=== PATIENT | male | born 1975 | race Caucasian/White ===

== ENCOUNTER 2018-03-03 20:25 | Emergency (ER) | payer OTHER ==
[2018-03-03 20:39] VITALS: BP 152/55
[2018-03-03] MEDS ORDERED: PROPARACAINE 0.5% OPHTH DROPS 15 ML LEFTEYE STA (20:41)
[2018-03-03] MEDS ORDERED: POLYMYXIN B/TRIMETH OPHTH DROPS LEFTEYE STA (20:41)
--- NOTE | 2018-03-03 21:00 | ED Physician Documentation ---
PD HPI OPHTHO - Stated complaint Stated Complaint: EYE PX - Chief complaint Chief Complaint: Heent - History obtained from History obtained from: Patient - History of Present Illness Timing - onset: Yesterday Timing - details: Gradual onset, Still present Location: Left Quality / character: Itching, Burning, Throbbing Associated symptoms: Redness, Swelling Similar symptoms before: Has not had sx before - Additional information Additional information: Patient is a 42 year old male with no significant past medical history who is presenting to the emergency department for left eye pain. Patient states that it feels like there was a grain of sand in his eye, and this morning he had some discharge. patient denies any trauma and does not wear contact lenses. Review of Systems Ten Systems: 10 systems reviewed and negative Eyes: reports: Discharge, Irritation PD PAST MEDICAL HISTORY - Past Medical History Past Medical History: Yes Cardiovascular: None Respiratory: Sleep apnea Endocrine/Autoimmune: None GI: None : None HEENT: None Psych: Anxiety, Post traumatic stress disorder Musculoskeletal: Chronic back pain Derm: None - Past Surgical History Past Surgical History: Yes Ortho: ACL reconstruction - Present Medications Home Medications: Ambulatory Orders Medication Instructions Recorded Confirmed Ibuprofen [Motrin] 800 mg PO TID PRN 08/30/15 08/30/15 Bupropion HCl [Wellbutrin Xl] 300 mg PO DAILY 03/03/18 03/03/18 Polymyxin B Sulf/Trimethoprim 1 drop LEFTEYE Q3H 7 Days drops 03/03/18 [Polytrim Eye Drops] - Allergies Allergies/Adverse Reactions: Allergies Allergy/AdvReac Type Severity Reaction Status Date / Time bee sting Allergy Severe anaphalaxis Uncoded 03/03/18 20:32 - Social History Does the pt smoke?: No Smoking Status: Never smoker Does the pt drink ETOH?: No Does the pt have substance abuse?: No - Immunizations Immunizations are current?: Yes - POLST Patient has POLST: No PD ED PE NORMAL - Vitals Vital signs reviewed: Yes - General General: Alert and oriented X 3, No acute distress - HEENT HEENT: Atraumatic, PERRL - Cardiac Cardiac: RRR - Respiratory Respiratory: No respiratory distress - Abdomen Abdomen: Non distended - Derm Derm: Normal color - Extremities Extremities: No deformity - Neuro Neuro: Alert and oriented X 3 PD ED PE EXPANDED - Eyes Eyes: Visual acuity - see nn, Corneal abrasion (small corneal abrasion lateral to iris "3'oclock) Results - Vitals Vitals: Vital Signs - 24 hr 03/03/18 20:27 Temperature 36.9 C Heart Rate 69 Respiratory 14 Rate Blood Pressure 152/55 H O2 Saturation 99 Oxygen O2 Source Room air PD MEDICAL DECISION MAKING - ED course Complexity details: reviewed old records, reviewed results, re-evaluated patient , considered differential, d/w patient ED course: Patient was seen and examined at bedside. Patient's eye was viewed with fluorescein and there was a small corneal abrasion. patient was started on poltrim drops. patient required no further work up and was stable for discharge with outpatient follow up. - Sepsis Event Vital Signs: Vital Signs - 24 hr 03/03/18 20:27 Temperature 36.9 C Heart Rate 69 Respiratory 14 Rate Blood Pressure 152/55 H O2 Saturation 99 Oxygen O2 Source Room air Departure - Departure Disposition: 01 Home, Self Care Clinical Impression: Corneal abrasion, left Condition: Good Instructions: ED Eye Injury Corneal Abrasion Follow-Up: primary,care provider [Other] - As Needed Prescriptions: Polymyxin B Sulf/Trimethoprim [Polytrim Eye Drops] 1 drop LEFTEYE Q3H 7 Days drops Comments: Your symptoms today are being caused by a corneal abrasion. You had your first dose of antibiotics today and will need to be on them for the next week. you should take them 4 times a day. you can take motrin or tylenol as needed for pain. You may return to the emergency department at any time for new, worsening or uncontrollable symptoms. Discharge Date/Time: 03/03/18 21:10
== END 2018-03-03 21:10 | disposition home or self-care (01) ==
LOC: ED 20:25
DX: S05.02XA Injury of conjunctiva and corneal abrasion without foreign body, left eye, initial encounter (principal)
CPT/HCPCS: 99283; A9270; J3490

== ENCOUNTER 2018-04-06 17:48 | Emergency (ER) | payer OTHER ==
[2018-04-06] MEDS ORDERED: LORazepam 2 MG/ML VIAL ONE (18:09)
[2018-04-06] MEDS ORDERED: LORazepam 2 MG/ML VIAL IVP STA (18:09)
--- NOTE | 2018-04-06 18:12 | ED Physician Documentation ---
PD HPI CHEST PAIN - Stated complaint Stated Complaint: CP - Chief complaint Chief Complaint: Cardiac - History obtained from History obtained from: Patient, Family - History of Present Illness Timing - onset: Today (42-year-old gentleman with history of anxiety depression presents with chest pain radiating up to the head and down to the stomach and he feels like he is going to and is very shaky and he feels like he is going to have a seizure. This is been going on for about 2 hours.) Associated symptoms: Other (He describes perioral and finger numbness and hadCarpal spasms with blood pressure check) Review of Systems Ten Systems: 10 systems reviewed and negative Constitutional: denies: Fever, Chills Cardiac: reports: Chest pain / pressure, Palpitations Respiratory: reports: Dyspnea. denies: Cough GI: denies: Abdominal Pain, Nausea, Vomiting, Constipation, Diarrhea PD PAST MEDICAL HISTORY - Past Medical History Cardiovascular: None Respiratory: Sleep apnea Endocrine/Autoimmune: None GI: None : None HEENT: None Psych: Anxiety, Post traumatic stress disorder Musculoskeletal: Chronic back pain Derm: None - Past Surgical History Past Surgical History: Yes Ortho: ACL reconstruction - Present Medications Home Medications: Ambulatory Orders Medication Instructions Recorded Confirmed Ibuprofen [Motrin] 800 mg PO TID PRN 08/30/15 08/30/15 Bupropion HCl [Wellbutrin Xl] 300 mg PO DAILY 03/03/18 03/03/18 Polymyxin B Sulf/Trimethoprim 1 drop LEFTEYE Q3H 7 Days drops 03/03/18 [Polytrim Eye Drops] Alprazolam [Xanax] 0.5 mg PO Q6H PRN #15 tablet 04/06/18 - Allergies Allergies/Adverse Reactions: Allergies Allergy/AdvReac Type Severity Reaction Status Date / Time bee sting Allergy Severe anaphalaxis Uncoded 03/03/18 20:32 - Social History Does the pt smoke?: No Smoking Status: Never smoker Does the pt drink ETOH?: No Does the pt have substance abuse?: No - Immunizations Immunizations are current?: Yes - POLST Patient has POLST: No PD ED PE NORMAL - Vitals Vital signs reviewed: Yes - General General: Alert and oriented X 3, Other (He is clearly in the midst with of a panic attack with significant hyperventilation) - HEENT HEENT: PERRL, EOMI - Neck Neck: Supple, no meningeal sign, No bony TTP - Cardiac Cardiac: RRR, No murmur - Respiratory Respiratory: No respiratory distress, Clear bilaterally - Abdomen Abdomen: Non tender - Extremities Extremities: No edema, No calf tenderness / cord - Neuro Neuro: Alert and oriented X 3, Normal speech Results - Vitals Vitals: Vital Signs - 24 hr 04/06/18 04/06/18 17:51 18:51 Temperature 36.8 C Heart Rate 120 H 71 Respiratory 18 13 Rate Blood Pressure 144/89 H 128/58 L O2 Saturation 100 94 Oxygen O2 Source Room air - EKG (time done) 1753 Rate: Rate (enter#) (125) Rhythm: NSR [place]: Normal Intervals: Normal [place], Prolonged QT QRS: Normal Computer interpretation: Agree with computer - Labs Labs: Laboratory Tests 04/06/18 04/06/18 04/06/18 18:00 18:00 18:00 WBC 10.6 RBC 4.84 Hgb 14.9 Hct 43.3 MCV 89.4 MCH 30.8 MCHC 34.4 RDW 12.9 Plt Count 234 MPV 8.6 Neut # (Auto) 5.6 Lymph # (Auto) 4.2 H [place] # (Auto) 0.7 Eos # (Auto) 0.0 Baso # (Auto) 0.0 Absolute Nucleated RBC 0.01 Nucleated RBC % 0.1 VBG pH VBG pCO2 VBG pO2 VBG HCO3 VBG Total CO2 VBG O2 Saturation VBG Base Excess Sodium 135 Potassium 3.4 L Chloride 102 Carbon Dioxide 25 Anion Gap 8.0 BUN 18 Creatinine 1.5 H Estimated GFR (MDRD) 52 L Glucose 119 H Calcium 9.4 Total Bilirubin 1.1 H AST 37 ALT 30 Alkaline Phosphatase 41 L Troponin I < 0.04 Total Protein 8.1 Albumin 4.3 Globulin 3.8 Albumin/Globulin Ratio 1.1 Lipase 37 04/06/18 18:17 WBC RBC Hgb Hct MCV MCH MCHC RDW Plt Count MPV Neut # (Auto) Lymph # (Auto) [place] # (Auto) Eos # (Auto) Baso # (Auto) Absolute Nucleated RBC Nucleated RBC % VBG pH 7.584 H VBG pCO2 21.4 L VBG pO2 43.6 VBG HCO3 19.8 L VBG Total CO2 20.5 L VBG O2 Saturation 91.2 H VBG Base Excess 0.4 Sodium Potassium Chloride Carbon Dioxide Anion Gap BUN Creatinine Estimated GFR (MDRD) Glucose Calcium Total Bilirubin AST ALT Alkaline Phosphatase Troponin I Total Protein Albumin Globulin Albumin/Globulin Ratio Lipase PD MEDICAL DECISION MAKING - ED course ED course: 42-year-old gentleman presents with acute chest pain in seems to be a hyperventilation/panic episode on physical examination it which is corroborated by a significant hyperventilation and alkalosis on a venous blood gas. The remainder of his workup was without emergent findings. He felt much better and his exam normalized after milligram of Ativan IV. - Sepsis Event Vital Signs: Vital Signs - 24 hr 04/06/18 04/06/18 17:51 18:51 Temperature 36.8 C Heart Rate 120 H 71 Respiratory 18 13 Rate Blood Pressure 144/89 H 128/58 L O2 Saturation 100 94 Oxygen O2 Source Room air Departure - Departure Disposition: 01 Home, Self Care Clinical Impression: Hyperventilation, Panic attack Chest pain Qualifiers: Chest pain type: chest pain on breathing Qualified Code(s): R07.1 - Chest pain on breathing; R07.81 - Pleurodynia Condition: Stable Record reviewed to determine appropriate education?: Yes Instructions: ED Panic Attack Prescriptions: Alprazolam [Xanax] 0.5 mg PO Q6H PRN #15 tablet PRN Reason: Anxiety Comments: Discuss long-term treatments for anxiety with your physician at the [facility]. Return if worsening.
[2018-04-06 18:16] LABS: BASOPHILS % (AUTO) 0.4 %; EOSINOPHILS % (AUTO) 0.3 %; HGB - HEMOGLOBIN 14.9 g/dL (14.0-18.0); LYMPHOCYTES # (AUTO) 4.2 10^3/uL (1.5-3.5); LYMPHOCYTES % (AUTO) 39.5 %; MEAN CORPUSCULAR HEMOGLOBIN 30.8 pg (27.0-31.0); MEAN CORPUSCULAR HGB CONC 34.4 g/dL (32.0-36.0); MEAN CORPUSCULAR VOLUME 89.4 fL (80.0-94.0); MEAN PLATELET VOLUME 8.6 fL (7.4-11.4); MONOCYTES # (AUTO) 0.7 10^3/uL (0.0-1.0); MONOCYTES % (AUTO) 7.1 %; NEUTROPHILS # (AUTO) 5.6 10^3/uL (1.5-6.6); NEUTROPHILS % (AUTO) 52.7 %; PLT - PLATELET COUNT 234 10^3/uL (130-450); RED BLOOD COUNT 4.84 10^6/uL (4.70-6.10); RED CELL DISTRIBUTION WIDTH 12.9 % (12.0-15.0); WHITE BLOOD COUNT 10.6 x10^3/uL (4.8-10.8)
[2018-04-06 18:30] LABS: ALBUMIN 4.3 g/dL (3.2-5.5); ALBUMIN/GLOBULIN RATIO 1.1 (1.0-2.2); BILIRUBIN,TOTAL 1.1 mg/dL (0.2-1.0); CALCIUM 9.4 mg/dL (8.5-10.3); CREATININE 1.5 mg/dL (0.6-1.2); TOTAL PROTEIN 8.1 g/dL (6.7-8.2)
[2018-04-06 18:33] LABS: VBG PCO2 21.4 mmHg (41-51); VBG PH 7.584 (7.31-7.41); VBG PO2 43.6 mmHg (25-47); VBG TOTAL CO2 20.5 mmol/L (24-29)
[2018-04-06 18:34] LABS: VBG BASE EXCESS 0.4 mmol/L ([, -2 - +2])
--- NOTE | 2018-04-06 19:27 | XRAY Report ---
Procedure Date: 04/06/2018 Accession Number: [id number] / [id number] Procedure: XR - Chest 1 View X-Ray CPT Code: 23308 FULL RESULT: EXAM: CHEST RADIOGRAPHY EXAM DATE: 04/06/2018 07:01 PM. CLINICAL HISTORY: Chest pain. Shortness of air. COMPARISON: None. TECHNIQUE: 1 view. FINDINGS: Lungs/Pleura: No focal opacities evident. No pleural effusion. No pneumothorax. Mediastinum: Within exam limitations, the cardiomediastinal contour is normal. Other: None. IMPRESSION: Normal single view chest. RADIA
[2018-04-06 19:31] VITALS: BP 116/73
== END 2018-04-06 19:30 | disposition home or self-care (01) ==
LOC: ED 17:48
DX: F41.0 Panic disorder [episodic paroxysmal anxiety] (principal); I45.81 Long QT syndrome
CPT/HCPCS: 36415; 71045; 80053; 82803; 83690; 84484; 85025; 93005; 96374; 99283; 99284; J2060

== ENCOUNTER 2018-10-05 18:19 | Emergency (ER) | payer OTHER ==
[2018-10-05] MEDS ORDERED: ONDANSETRON ODT 4 MG TABLET TL STA (18:39)
--- NOTE | 2018-10-05 19:51 | ED Physician Documentation ---
PD HPI NVD - Stated complaint Stated Complaint: N/V/D - Chief complaint Chief Complaint: Abd Pain - Additonal information Additional information: 42-year-old male presents to the emergency department with his daughter for 1 day of nausea, vomiting or diarrhea. No focal area of abdominal pain. The patient does experience abdominal cramping with the episodes. No blood in the vomit or stools. They both may have eaten bad food. No other associated symptoms. No relieving factors. Review of Systems Constitutional: denies: Fever, Chills Eyes: denies: Discharge Ears: denies: Ear pain Nose: denies: Congestion Cardiac: denies: Chest pain / pressure Respiratory: denies: Dyspnea GI: reports: Abdominal Pain, Nausea, Vomiting, Diarrhea : denies: Dysuria Skin: denies: Rash Immunocompromised: denies: Chemotherapy PD PAST MEDICAL HISTORY - Past Medical History Cardiovascular: None Respiratory: Sleep apnea Endocrine/Autoimmune: None GI: None : None HEENT: None Psych: Anxiety, Post traumatic stress disorder Musculoskeletal: Chronic back pain Derm: None - Past Surgical History Past Surgical History: Yes Ortho: ACL reconstruction - Present Medications Home Medications: Ambulatory Orders Medication Instructions Recorded Confirmed Ibuprofen [Motrin] 800 mg PO TID PRN 08/30/15 08/30/15 Ondansetron Odt [Zofran] 4 mg TL Q6H PRN #30 tablet 10/05/18 - Allergies Allergies/Adverse Reactions: Allergies Allergy/AdvReac Type Severity Reaction Status Date / Time bee sting Allergy Severe anaphalaxis Uncoded 10/05/18 18:28 - Social History Does the pt smoke?: No Smoking Status: Never smoker Does the pt drink ETOH?: No Does the pt have substance abuse?: No - Immunizations Immunizations are current?: Yes - POLST Patient has POLST: No PD ED PE NORMAL - General General: Alert and oriented X 3, No acute distress - HEENT HEENT: Atraumatic, PERRL, EOMI, Ears normal - Cardiac Cardiac: RRR - Abdomen Abdomen: Soft, Non tender, Non distended - Derm Derm: Normal color - Extremities Extremities: No deformity, No edema - Neuro Neuro: Alert and oriented X 3, Normal speech - Psych Psych: Normal affect Results - Vitals Vitals: Vital Signs - 24 hr 10/05/18 18:27 Temperature 36.6 C Heart Rate 63 Respiratory 20 Rate Blood Pressure 136/75 H O2 Saturation 93 Oxygen O2 Source Room air PD MEDICAL DECISION MAKING - ED course ED course: The patient's symptoms seem to represent a probable viral etiology or possibly a foodborne Exposure.The patient has no focal signs of abdominal pain and clinically the patient appears well-hydrated, nontoxic and well-appearing. After some observation in the emergency department the patient appears much improved and appropriate for discharge home. Presently the patient does not appear to be in need of IV rehydration. I discussed with the patient warning signs for more serious surgical etiology and advised returning to the emergency department immediately for any worsening or any concerns Departure - Departure Disposition: 01 Home, Self Care Clinical Impression: Vomiting and diarrhea Condition: Good Instructions: ED Diet Vomiting Diarrhea Prescriptions: Ondansetron Odt [Zofran] 4 mg TL Q6H PRN #30 tablet PRN Reason: Nausea / Vomiting Comments: Please return to the emergency department for worsening symptoms or any concerns Follow up with your Primary care as needed
[2018-10-05 19:52] VITALS: BP 139/84
== END 2018-10-05 20:10 | disposition home or self-care (01) ==
LOC: ED 18:19
DX: R11.2 Nausea with vomiting, unspecified (principal); R19.7 Diarrhea, unspecified
CPT/HCPCS: 99283; Q0162

== ENCOUNTER 2020-07-21 17:36 | Emergency (ER) | payer OTHER ==
[2020-07-21] MEDS ORDERED: diazePAM 5 MG TABLET PO STA (17:51)
[2020-07-21] MEDS ORDERED: KETOROLAC 60 MG/2 ML VIAL IM STA (17:51)
[2020-07-21] MEDS ORDERED: HYDROmorphone 1 MG/ML CARPUJECT IM STA (17:51)
[2020-07-21] MEDS ORDERED: predniSONE 20 MG TABLET PO STA (17:51)
--- NOTE | 2020-07-21 17:55 | ED Physician Documentation ---
PD HPI BACK PAIN - Stated complaint Stated Complaint: BACK PX - Chief complaint Chief Complaint: Back Pain - History obtained from History obtained from: Patient - Additional information Additional information: 44-year-old gentleman with chronic recurrent back pain, used to have to use the emergency department fairly frequently, maybe twice a year for exacerbations of same. States that over the last few years has been working on his core strength and really has not had as much problem with his back as he had a few years ago. Also of note he had an MRI done in 2016 demonstrating multilevel DDD and facet changes, left-sided disc herniations at L2-L3 and L3-L4 with stenosis at both levels and foraminal narrowing at L3-L4 and L4-L5 and L5-S1. Over the last couple of days has had pain radiating in the left hip and more acutely today when bending over to product picker his dog developed severe low back pain similar to prior exacerbations of same. Denies weakness, numbness, tingling, saddle anesth esia, incontinence, fevers. Review of Systems Constitutional: denies: Fever, Chills, Myalgias Cardiac: reports: Reviewed and negative Respiratory: reports: Reviewed and negative GI: reports: Reviewed and negative PD PAST MEDICAL HISTORY - Past Medical History Past Medical History: Yes Cardiovascular: None Respiratory: Sleep apnea Neuro: Head injury Endocrine/Autoimmune: None GI: None : None HEENT: None Psych: Anxiety, Post traumatic stress disorder Musculoskeletal: Chronic back pain Derm: None - Past Surgical History Past Surgical History: Yes Ortho: ACL reconstruction - Present Medications Home Medications: Ambulatory Orders Medication Instructions Recorded Confirmed Oxycodone HCl/Acetaminophen 1 - 2 each PO Q6H PRN #14 tablet 07/21/20 [Percocet 5-325 mg Tablet] diazePAM [Valium] 5 - 10 mg PO TID PRN #15 tablet 07/21/20 predniSONE [Deltasone] 20 mg PO [id number] #21 tab 07/21/20 - Allergies Allergies/Adverse Reactions: Allergies Allergy/AdvReac Type Severity Reaction Status Date / Time bee sting Allergy Severe anaphalaxis Uncoded 07/21/20 17:50 - Social History Does the pt smoke?: No Smoking Status: Never smoker Does the pt drink ETOH?: Yes Does the pt have substance abuse?: No - Immunizations Immunizations are current?: Yes - POLST Patient has POLST: No PD ED PE NORMAL - Vitals Vital signs reviewed: Yes - General General: Alert and oriented X 3, Other (Comfortable at rest but winces with motion, holding the left hip flexed) - Abdomen Abdomen: Normal bowel sounds, Soft, Non tender - Back Back: No spinal TTP - Extremities Extremities: Other (The patient has equal and normal Achilles and patellar reflexes bilaterally. Normal sensation in all areas of the legs. Patient denies saddle anesthesia. Normal strength in flexion-extension at the ankles, knees, and flexion of the hips.) - Neuro Neuro: Alert and oriented X 3, Normal speech Results - Vitals Vitals: Vital Signs - 24 hr 07/21/20 17:39 Temperature 36.4 C L Heart Rate 66 Respiratory 16 Rate Blood Pressure 141/92 H O2 Saturation 98 Oxygen O2 Source Room air PD MEDICAL DECISION MAKING - ED course ED course: This patient has seemingly uncomplicated musculoskeletal back pain. The patient has no "red flags." Specifically denies IV drug use, fevers, incontinence, saddle anesthesia. Spinal epidural abscess was considered, given that the patient has no fever, is not diabetic, has no spinal tenderness, does not use IV drugs, and has no bilateral neurologic symptoms, the diagnosis of spinal epidural abscess is considered exceedingly unlikely. Departure - Departure Disposition: 01 Home, Self Care Clinical Impression: Back pain Qualifiers: Back pain location: low back pain Chronicity: acute Back pain laterality: midline Sciatica presence: without sciatica Qualified Code(s): M54.5 - Low back pain Condition: Good Record reviewed to determine appropriate education?: Yes Instructions: ED Neck Back Pain General Prescriptions: predniSONE [Deltasone] 20 mg PO [id number] #21 tab Oxycodone HCl/Acetaminophen [Percocet 5-325 mg Tablet] 1 - 2 each PO Q6H PRN #14 tablet PRN Reason: pain diazePAM [Valium] 5 - 10 mg PO TID PRN #15 tablet PRN Reason: Spasms Comments: Call your doctor to arrange a follow-up appointment, make the next available appointment. In the interim, return anytime if worse or if new symptoms develop. Do not drink or drive while taking narcotic pain medication. Note that many narcotic pain relievers also contain Tylenol/acetaminophen. Please ensure that your total dose of acetaminophen from all sources does not exceed 3 g (3000 mg) per day. You may get constipated while on this medication. Take a stool softener such as Colace twice a day while you are on it. Also add an [id number] laxative such as senna or MiraLAX on any day that you do not have a bowel movement. If you received a narcotic pain medication or sedative while in the emergency department, do not drive for the next 24 hours.
[2020-07-21 19:15] VITALS: BP 140/89
== END 2020-07-21 19:15 | disposition home or self-care (01) ==
LOC: ED 17:36
DX: M54.5 Low back pain (principal); G89.29 Other chronic pain; M25.552 Pain in left hip
CPT/HCPCS: 96372; 99283; 99284; A9270; J1170; J7512

== ENCOUNTER 2021-01-09 15:15 | Outpatient (CLI) | payer OTHER | END 2021-01-09 15:16 | disposition critical access hospital (66) | LOC: EMS 15:15 | DX: R20.0 Anesthesia of skin (principal) | CPT/HCPCS: A0425; A0429 ==

== ENCOUNTER 2021-01-09 15:33 | Emergency (ER) | payer OTHER ==
--- NOTE | 2021-01-09 17:07 | ED Physician Documentation ---
PD HPI MHE - Stated complaint Stated Complaint: PANIC ATTACK - Chief complaint Chief Complaint: MHE - History obtained from History obtained from: Patient - History of Present Illness Primary symptom: Anxiety (patient had panic attack today and previously would have taken Xanax. But it causes drowsiness for good part of the day, so he and his provider were trying different med for it, hydroxyzine. He took it but did not help the panic/anxiety, so ramped up to hyperventilation. Got tingling then spasms.) Timing - onset: How many hours ago (1), Today Contributing factors: No: Substance abuse - drugs, Off meds Similar symptoms before: Diagnosis (panic attacks, without particular stressful events occuring when he gets most of them. Occur every few weeks or so.) Review of Systems Constitutional: denies: Fever, Chills Nose: denies: Rhinorrhea / runny nose, Congestion Throat: denies: Sore throat Cardiac: denies: Palpitations Respiratory: denies: Cough GI: reports: Nausea. denies: Abdominal Pain, Vomiting Neurologic: denies: Altered mental status, Headache PD PAST MEDICAL HISTORY - Past Medical History Cardiovascular: None Respiratory: Sleep apnea Neuro: Head injury Endocrine/Autoimmune: None GI: None : None HEENT: None Psych: Anxiety, Post traumatic stress disorder Musculoskeletal: Chronic back pain Derm: None - Past Surgical History Past Surgical History: Yes Ortho: ACL reconstruction - Present Medications Home Medications: Ambulatory Orders Medication Instructions Recorded Confirmed Alprazolam [Xanax] 0.5 mg PO Q8H PRN #6 tablet 01/09/21 Buspirone HCl 1 tab PO BID 01/09/21 01/09/21 buPROPion [Wellbutrin Xl] 1 tab PO DAILY 01/09/21 01/09/21 hydrOXYzine pamoate [Hydroxyzine 1 tab PO DAILY PRN 01/09/21 01/09/21 Pamoate] - Allergies Allergies/Adverse Reactions: Allergies Allergy/AdvReac Type Severity Reaction Status Date / Time bee sting Allergy Severe anaphalaxis Uncoded 01/09/21 15:37 - Social History Does the pt smoke?: No Smoking Status: Never smoker Does the pt drink ETOH?: Yes Does the pt have substance abuse?: No - Immunizations Immunizations are current?: Yes - POLST Patient has POLST: No PD ED PE NORMAL - Vitals Vital signs reviewed: Yes - General General: Alert and oriented X 3, No acute distress, Well developed/nourished - Neck Neck: Supple, no meningeal sign, No adenopathy - Cardiac Cardiac: RRR, No murmur - Respiratory Respiratory: Clear bilaterally - Derm Derm: Normal color, Warm and dry - Neuro Neuro: Alert and oriented X 3, No motor deficit, Normal speech Eye Opening: Spontaneous Motor: Obeys Commands Verbal: Oriented GCS Score: 15 Results - Vitals Vitals: Vital Signs - 24 hr 01/09/21 01/09/21 15:37 18:00 Temperature 36.5 C Heart Rate 86 73 Respiratory 16 16 Rate Blood Pressure 138/90 H 145/109 H O2 Saturation 97 97 Oxygen O2 Source Room air - EKG (time done) 17:51 Rhythm: NSR [place]: Normal Intervals: Normal [place] QRS: Normal Ischemia: Normal ST segments. No: ST elevation c/w ischemia, ST depression Compare to prior EKG: Old EKG unavailable PD MEDICAL DECISION MAKING - ED course Complexity details: considered differential (had panic attack with hyperventilation, and new med of Hydroxyzine did not work well. Can give Rx for short term of prior Xanax. ), d/w patient Departure - Departure Disposition: 01 Home, Self Care Clinical Impression: Panic attack, Hyperventilation Condition: Stable Record reviewed to determine appropriate education?: Yes Instructions: ED Hyperventilation Syndrome Follow-Up: LORY RUIZ ARNP [Physician No Access] - Prescriptions: Alprazolam [Xanax] 0.5 mg PO Q8H PRN #6 tablet PRN Reason: Anxiety Comments: Stay well-hydrated. Regular diet and food and regular exercise. Continue with your current antidepressant/anxiety medicines. Add Xanax every 8-12 hours if needed for anxiety/panic attack. You could try the hydroxyzine 1 or 2 tablets initially first and see if those help instead. Follow-up with your primary care regarding other medications to potentially try. We can continue the Xanax you had used in the past for the short-term anyway. With your counselor, discuss potential feedback mechanisms to try to help when getting a panic attack. 1 methodology currently popular is cognitive behavioral therapy (CBT). These techniques help you provide feedback to yourself to change some of the physiology mechanisms. Discharge Date/Time: 01/09/21 18:38
[2021-01-09] MEDS ORDERED: ALPRAZolam 0.25 MG TABLET PO STA (17:41)
[2021-01-09 18:01] VITALS: BP 145/109
== END 2021-01-09 18:38 | disposition home or self-care (01) ==
LOC: EDUNIT# → ED 15:33
DX: F41.0 Panic disorder [episodic paroxysmal anxiety] (principal); R06.4 Hyperventilation
CPT/HCPCS: 93005; 99283; A9270

== ENCOUNTER 2022-11-20 09:33 | Emergency (ER) | payer OTHER ==
--- OUTSIDE RECORDS SUMMARY | 2022-11-20 10:26 | EXTERNAL MEDICAL SUMMARY RPT | Continuity of Care Document ---
:1975 Author Organization [facility] Address [address] [place] [address] Phone Allergies No information. Encounters No information. Functional Status No information. Immunizations No information. Medications No information. Problems date description facility 2022-09-24 10:19 Spinal stenosis, cervical region [facility] Procedures No information. Results/Labs test date author facility value unit interpret ation Result panel 1 (unknown) (no (unknown) (unknown) (no value) (units (unk nown) date) unknown) (unknown) (no (unknown) (unknown) 09/24/22 (units (unkno wn) date) unknown) (unknown) (no (unknown) (unknown) 1. 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 Multilevel (units ( unknown) date) canal stenoses, unknown) worst at C5-C6 and C6-C7 where there is mild cord (unknown) (no (unknown) (unknown) 3. Multilevel (units ( unknown) date) foraminal unknown) stenoses, worst at C3-C4, C4-C5, C5-C6, and C6-C7 where (unknown) (no (unknown) (unknown) Accession (units (unkn own) date) Number: unknown) [id number] (unknown) (no (unknown) (unknown) Age/Sex: 46 / M (units (unknown) date) Date of Service: unknown) (unknown) (no (unknown) (unknown) Alignment and (units ( unknown) date) Curvature: There unknown) is loss of normal cervical lordosis. Roughly 3 (unknown) (no (unknown) (unknown) [place], [place] (units ( unknown) date) [id number] unknown) (unknown) (no (unknown) (unknown) Approved by: (units (u nknown) date) Rashard Albrecht, unknown) Liliana on 09/24/2022 at 16:28 (unknown) (no (unknown) (unknown) Bone Marrow: (units (u nknown) date) Marrow unknown) demonstrates normal overall signal. Moderate reactive (unknown) (no (unknown) (unknown) C2-C3: Moderate (units (unknown) date) disc desiccation. unknown) Moderate left and mild right facet and (unknown) (no (unknown) (unknown) C3-C4: (units (unkno wn) date) Congenital canal unknown) stenosis. Moderate disc desiccation. Mild diffuse (unknown) (no (unknown) (unknown) C4-C5: (units (unkno wn) date) Congenital canal unknown) stenosis. Moderate disc desiccation. Mild diffuse (unknown) (no (unknown) (unknown) C5-C6: (units (unkno wn) date) Congenital canal unknown) stenosis. Moderate disc desiccation. Mild diffuse (unknown) (no (unknown) (unknown) C6-C7: (units (unkno wn) date) Congenital canal unknown) stenosis. Moderate disc desiccation. Mild diffuse (unknown) (no (unknown) (unknown) C7 nerve (units (unkno wn) date) unknown) (unknown) (no (unknown) (unknown) C7-T1: Mild disc (units (unknown) date) desiccation and unknown) diffuse disc bulge. Mild facet and (unknown) (no (unknown) (unknown) COMPARISON: (units (un known) date) None. unknown) (unknown) (no (unknown) (unknown) Caution: Report (units (unknown) date) not yet finalized unknown) and possibly incomplete! (unknown) (no (unknown) (unknown) : 1975 (units (unknown) date) Acct:[id number] unknown) (unknown) (no (unknown) (unknown) Dictated by: (units (u nknown) date) Rashard Albrecht unknown) Liliana on 09/24/2022 at 11:18 (unknown) (no (unknown) (unknown) Draft (units (unkno wn) date) unknown) (unknown) (no (unknown) (unknown) FINDINGS: (units (unkn own) date) unknown) (unknown) (no (unknown) (unknown) IMPRESSION: (units (un known) date) unknown) (unknown) (no (unknown) (unknown) INDICATIONS: (units (u nknown) date) Spinal stenosis, unknown) cervical region (unknown) (no (unknown) (unknown) Image quality: (units (unknown) date) Excellent. unknown) (unknown) (no (unknown) (unknown) [facility] (units (unknown) date) unknown) (unknown) (no (unknown) (unknown) Loc: MRI (units (unkno wn) date) unknown) (unknown) (no (unknown) (unknown) [id number] (units (unk nown) date) unknown) (unknown) (no (unknown) (unknown) Magnetic (units (unkno wn) date) Resonance Report unknown) (unknown) (no (unknown) (unknown) Moderate canal (units (unknown) date) unknown) (unknown) (no (unknown) (unknown) Moderate facet (units (unknown) date) and uncovertebral unknown) hypertrophy bilaterally. Severe canal (unknown) (no (unknown) (unknown) Moderate facet (units (unknown) date) and uncovertebral unknown) hypertrophy, left greater than right. (unknown) (no (unknown) (unknown) Moderate right (units (unknown) date) greater than left unknown) facet and uncovertebral hypertrophy. Severe (unknown) (no (unknown) (unknown) Noncontrast (units (un known) date) sagittal T1 spin unknown) echo and T2 fast spin echo, sagittal STIR, (unknown) (no (unknown) (unknown) Ordering (units (unkno wn) date) Provider: unknown) Davion Singer MD (unknown) (no (unknown) (unknown) PROCEDURE: MR (units ( unknown) date) CERVICAL SPINE WO unknown) CON (unknown) (no (unknown) (unknown) Paraspinous Soft (units (unknown) date) Tissues: No unknown) paravertebral masses. Prevertebral soft tissues (unknown) (no (unknown) (unknown) Patient: (units (unkno wn) date) Headings,Parish unknown) J MR#: (unknown) (no (unknown) (unknown) Procedure: MR (units ( unknown) date) cervical spine wo unknown) con (unknown) (no (unknown) (unknown) Severe (units (unkno wn) date) unknown) (unknown) (no (unknown) (unknown) Signed (units (unkno wn) date) unknown) (unknown) (no (unknown) (unknown) Spinal Cord: (units (u nknown) date) Visualized spinal unknown) cord has normal size and signal. No cerebellar (unknown) (no (unknown) (unknown) TECHNIQUE: (units (unk nown) date) unknown) (unknown) (no (unknown) (unknown) Transcribed by: (units (unknown) date) ALBRECHT on unknown) 09/24/2022 at 11:22 (unknown) (no (unknown) (unknown) are normal (units (unk nown) date) unknown) (unknown) (no (unknown) (unknown) as well as (units (unk nown) date) unknown) (unknown) (no (unknown) (unknown) associated (units (unk nown) date) intraforaminal unknown) nerve root compression. Recommend correlation with (unknown) (no (unknown) (unknown) bilateral C4 (units (u nknown) date) unknown) (unknown) (no (unknown) (unknown) bilaterally. (units (u nknown) date) Moderate to unknown) severe canal stenosis. Minimal left cord flattening. (unknown) (no (unknown) (unknown) canal (units (unkno wn) date) unknown) (unknown) (no (unknown) (unknown) cervical spine. (units (unknown) date) unknown) (unknown) (no (unknown) (unknown) clinical (units (unkno wn) date) unknown) (unknown) (no (unknown) (unknown) compression. (units (u nknown) date) unknown) (unknown) (no (unknown) (unknown) cord flattening. (units (unknown) date) Severe bilateral unknown) foraminal stenosis with bilateral C6 nerve (unknown) (no (unknown) (unknown) disc bulge (units (unk nown) date) unknown) (unknown) (no (unknown) (unknown) disc bulge. (units (un known) date) unknown) (unknown) (no (unknown) (unknown) flattening. (units (un known) date) unknown) (unknown) (no (unknown) (unknown) foraminal (units (unkn own) date) oblique unknown) (unknown) (no (unknown) (unknown) herniation. (units (un known) date) unknown) (unknown) (no (unknown) (unknown) hypertrophy (units (un known) date) bilaterally. Mild unknown) canal stenosis. Moderate bilateral foraminal (unknown) (no (unknown) (unknown) hypertrophy (units (un known) date) unknown) (unknown) (no (unknown) (unknown) hypertrophy. (units (u nknown) date) Mild diffuse disc unknown) bulge. Congenital canal stenosis. Moderate (unknown) (no (unknown) (unknown) in thickness. (units ( unknown) date) unknown) (unknown) (no (unknown) (unknown) left and (units (unkno wn) date) moderate to unknown) severe right foraminal stenosis. Left greater than right (unknown) (no (unknown) (unknown) mm of (units (unkno wn) date) unknown) (unknown) (no (unknown) (unknown) nerve root (units (unk nown) date) compression. unknown) (unknown) (no (unknown) (unknown) remaining (units (unkn own) date) visualized unknown) cervical and upper thoracic endplates. (unknown) (no (unknown) (unknown) retrolisthesis (units (unknown) date) of C5 on C6. 2 mm unknown) of retrolisthesis of C2 on C3. (unknown) (no (unknown) (unknown) root (units (unkno wn) date) compression. unknown) (unknown) (no (unknown) (unknown) root (units (unkno wn) date) unknown) (unknown) (no (unknown) (unknown) sagittal T2 fast (units (unknown) date) spin echo, and unknown) axial gradient echo or T2 fast spin echo (unknown) (no (unknown) (unknown) signal within (units ( unknown) date) unknown) (unknown) (no (unknown) (unknown) stenosis. Mild (units (unknown) date) cord flattening. unknown) Severe bilateral foraminal stenosis with (unknown) (no (unknown) (unknown) stenosis. Mild (units (unknown) date) unknown) (unknown) (no (unknown) (unknown) stenosis. (units (unkn own) date) Moderate left and unknown) mild right foraminal stenosis. (unknown) (no (unknown) (unknown) stenosis. Severe (units (unknown) date) left and moderate unknown) right foraminal stenosis. Left C5 nerve (unknown) (no (unknown) (unknown) stenosis. (units (unkn own) date) unknown) (unknown) (no (unknown) (unknown) symptoms to (units (un known) date) ascertain unknown) relevance of these findings. (unknown) (no (unknown) (unknown) the endplates (units ( unknown) date) adjacent to the unknown) C5-C6 intervertebral disc. Mild reactive signal (unknown) (no (unknown) (unknown) there is (units (unkno wn) date) unknown) (unknown) (no (unknown) (unknown) through the (units (un known) date) unknown) (unknown) (no (unknown) (unknown) tonsillar (units (unkn own) date) unknown) (unknown) (no (unknown) (unknown) uncovertebral (units ( unknown) date) hypertrophy. unknown) (unknown) (no (unknown) (unknown) uncovertebral (units ( unknown) date) unknown) (unknown) (no (unknown) (unknown) with (units (unkno wn) date) superimposed left unknown) paracentral protrusion. Mild facet and uncovertebral (unknown) (no (unknown) (unknown) within the (units (unk nown) date) unknown) Social History No information. Vital Signs No information.
[2022-11-20] MEDS ORDERED: diazePAM 5 MG TABLET PO STA (11:39)
[2022-11-20] MEDS ORDERED: HYDROmorphone 1 MG/ML CARPUJECT IM STA (11:39)
[2022-11-20] MEDS ORDERED: KETOROLAC 60 MG/2 ML VIAL IM STA (11:39)
--- NOTE | 2022-11-20 11:43 | ED Physician Documentation ---
PD HPI BACK PAIN - Stated complaint Stated Complaint: BACK SPASM - Chief complaint Chief Complaint: Back Pain - History obtained from History obtained from: Patient - History of Present Illness Timing - onset: How many weeks ago (2) Timing - duration: Weeks (2) Timing - details: Gradual onset Pain level max: 8 Pain level now: 8 Location: Lower Quality: Pain, Spasm Associated symptoms: No: Fever, Weakness, Incontinent of urine, Unable to urinate, Hematuria Improves with: Rest Worsened by: Movement Recently seen: Clinic (yesterday for same) - Additional information Additional information: Patient is a 47-year-old male who presents to the emergency department complaining of low back pain. He has a history of chronic neck and back pain. Worse over the past 2 weeks. Sees orthopedics at [facility]. He saw his PCP yesterday who started him on Robaxin. He states that that is not providing relief for his back spasms and is requesting Valium instead. He is not having any numbness, he states occasionally his legs tingle. He is not having any issues with bladder control, he states he did lose control of his bowels during a particularly painful episode about a week ago. No issues since then. Does not use any IV drugs. Worse with movement, better with rest. Review of Systems Constitutional: denies: Fever, Chills GI: denies: Vomiting, Diarrhea Skin: denies: Rash Neurologic: denies: Focal weakness, Numbness, Headache PD PAST MEDICAL HISTORY - Past Medical History Past Medical History: Yes Cardiovascular: None Respiratory: Sleep apnea Neuro: Head injury Endocrine/Autoimmune: None GI: GERD : None HEENT: None Psych: Anxiety, Post traumatic stress disorder Musculoskeletal: Chronic back pain Derm: None - Past Surgical History Past Surgical History: Yes Ortho: ACL reconstruction - Present Medications Home Medications: Ambulatory Orders Medication Instructions Recorded Confirmed buPROPion [Wellbutrin Xl] 150 mg PO DAILY 01/09/21 11/20/22 Meloxicam [Mobic] 7.5 mg PO BID PRN #20 tablet 11/20/22 Omeprazole Magnesium 20 mg PO BID 11/20/22 11/20/22 Oxycodone HCl/Acetaminophen 1 - 2 each PO Q6H PRN #14 tablet 11/20/22 [Percocet 5-325 mg Tablet] MDD 6 tabs Rosuvastatin Calcium [Crestor] 20 mg PO DAILY 11/20/22 11/20/22 Vilazodone HCl 20 mg PO DAILY 11/20/22 11/20/22 diazePAM [Valium] 5 - 10 mg PO TID PRN #15 tablet 11/20/22 methocarbamoL [Methocarbamol] 750 mg PO TID PRN 11/20/22 11/20/22 - Allergies Allergies/Adverse Reactions: Allergies Allergy/AdvReac Type Severity Reaction Status Date / Time bee sting Allergy Severe anaphalaxis Uncoded 11/20/22 09:41 - Social History Does the pt smoke?: No Smoking Status: Never smoker Does the pt drink ETOH?: Yes Does the pt have substance abuse?: No - Immunizations Immunizations are current?: Yes - POLST Patient has POLST: No PD ED PE NORMAL - Vitals Vital signs reviewed: Yes - General General: Alert and oriented X 3, No acute distress, Well developed/nourished - HEENT HEENT: PERRL, Moist mucous membranes - Neck Neck: Supple, no meningeal sign - Cardiac Cardiac: RRR, Strong equal pulses - Respiratory Respiratory: No respiratory distress, Clear bilaterally - Abdomen Abdomen: Soft, Non tender, Non distended - Back Back: Other (No midline tenderness palpation or percussion. No step-off or deformity. Paraspinal spasm lower lumbar.) - Derm Derm: Warm and dry - Extremities Extremities: No edema, No calf tenderness / cord - Neuro Neuro: Alert and oriented X 3, rug cleaner helper 2-12 intact, No motor deficit, No sensory deficit, Normal speech, Other (Normal bilateral lower extremity patellar and ankle jerk reflexes. Normal great toe extension bilaterally. no saddle anes thesia) - Psych Psych: Normal mood, Normal affect Results - Vitals Vitals: Vital Signs - 24 hr 11/20/22 11/20/22 09:37 12:53 Temperature 36.3 C L Heart Rate 77 68 Respiratory 16 16 Rate Blood Pressure 158/103 H 149/95 H O2 Saturation 98 97 Oxygen O2 Source Room air PD Medical Decision Making - ED course Complexity details: re-evaluated patient, considered differential (No cauda equina, no spinal epidural abscess, no fracture, no aortic dissection or evidence of aneursym rupture), d/w patient ED course: 47-year-old male with acute on chronic back pain. He was given a dose of Dilaudid, Toradol IM. He was also given a dose of oral Valium. Pain greatly improved. No acute neurological deficits. No indication for emergent neuroimaging. No fevers. No trauma. Ambulating well. No evidence of cauda equina at this time. No evidence of epidural abscess. We will place on pain medication and muscle relaxants for home. Patient counseled regarding signs and symptoms for which I believe and urgent re-evaluation would be necessary. Patient with good understanding of and agreement to plan and is comfortable going home at this time This document was made in part using voice recognition software. While efforts are made to proofread this document, sound alike and grammatical errors may occur. Departure - Departure Disposition: 01 Home, Self Care Clinical Impression: Back spasm Condition: Good Instructions: ED Spasm Back No Trauma Follow-Up: Ismael Cm ARNP [Primary Care Provider] - Within 1 week Prescriptions: Meloxicam [Mobic] 7.5 mg PO BID PRN #20 tablet PRN Reason: Pain Oxycodone HCl/Acetaminophen [Percocet 5-325 mg Tablet] 1 - 2 each PO Q6H PRN #14 tablet MDD 6 tabs PRN Reason: pain diazePAM [Valium] 5 - 10 mg PO TID PRN #15 tablet PRN Reason: Spasms Comments: Your prescriptions were sent to [facility] in [place]. Please follow-up with your doctor for further care. Please return if you worsen. This should improve over the next several days. Your doctor may want to order an outpatient MRI for you. I am prescribing a short course of narcotic pain medication for you. These are potentially dangerous and addictive medications that should be used carefully. These medications may constipate you. Take an zbof-kxs-[id number] stool softener (docusate) twice daily with plenty of water while taking these medications. If you go 24 hours without a bowel movement, take [id number] miralax, per package instructions. Do not drink or drive while taking these medications. If you received narcotic or sedating medications while in the emergency department, do not drive for 24 hours. Store this medication in a safe, secure place and out of reach of children. It is a violation of federal law to give or sell this medication to another person or to use in a manner other than prescribed. The ED will not refill narcotic prescriptions, including prescriptions lost or stolen. To dispose of unwanted medications: 1. [facility] at [address] in [place] has a medication drop box. They accept prescription medications (in pill form) Saturday through Saturday 9:00 a.m. to 5:00 p.m. 2. [facility] [employer] [facility] accepts prescription medications (in pill form only) for disposal year round. Call for more information. 3. Contact the [facility] for the next [facility] sponsored prescription drug collection event. , [phone], or [phone]; Discharge Date/Time: 11/20/22 12:54
[2022-11-20 12:54] VITALS: BP 149/95
== END 2022-11-20 12:54 | disposition home or self-care (01) ==
LOC: ED 09:33
DX: M62.830 Muscle spasm of back (principal)
CPT/HCPCS: 96372; 96374; 99283; 99284; A9270; J1170

== ENCOUNTER 2023-08-25 10:28 | Emergency (ER) | payer OTHER ==
[2023-08-25 11:03] VITALS: BP 126/75; O2SAT 100
--- NOTE | 2023-08-25 13:34 | ED Physician Documentation ---
PD HPI UPPER EXT INJURY - Stated complaint Stated Complaint: RT THUMB PX - Chief complaint Chief Complaint: Ext Problem - History obtained from History obtained from: Patient - Additonal information Additional information: 47-year-old male R hand dominant presents for right thumb injury for the last 4 days. Patient states that he was doing braced bicep curls and when he went to sit down the weight he had an injury to his thumb somehow that he thinks was hyperextension. Since then he has been unable to flex his thumb at the joint, but is able to move his thumb from the base. He initially went to his chiropractor's office, who did forearm scraping for his soreness. Patient Review of Systems Constitutional: denies: Fever, Chills GI: denies: Abdominal Pain, Nausea, Vomiting Musculoskeletal: reports: Joint pain (R thumb). denies: Neck pain, Back pain, Extremity pain Neurologic: denies: Generalized weakness, Focal weakness PD PAST MEDICAL HISTORY - Past Medical History Cardiovascular: None Respiratory: Sleep apnea Neuro: Head injury Endocrine/Autoimmune: None GI: GERD : None HEENT: None Psych: Anxiety, Post traumatic stress disorder Musculoskeletal: Chronic back pain Derm: None - Past Surgical History Past Surgical History: Yes Ortho: ACL reconstruction - Present Medications Home Medications: Ambulatory Orders Medication Instructions Recorded Confirmed buPROPion [Wellbutrin Xl] 150 mg PO DAILY 01/09/21 11/20/22 Meloxicam [Mobic] 7.5 mg PO BID PRN #20 tablet 11/20/22 Omeprazole Magnesium 20 mg PO BID 11/20/22 11/20/22 Oxycodone HCl/Acetaminophen 1 - 2 each PO Q6H PRN #14 tablet 11/20/22 [Percocet 5-325 mg Tablet] MDD 6 tabs Rosuvastatin Calcium [Crestor] 20 mg PO DAILY 11/20/22 11/20/22 Vilazodone HCl 20 mg PO DAILY 11/20/22 11/20/22 diazePAM [Valium] 5 - 10 mg PO TID PRN #15 tablet 11/20/22 methocarbamoL [Methocarbamol] 750 mg PO TID PRN 11/20/22 11/20/22 Cyclobenzaprine [Flexeril] 10 mg PO TID PRN 6 Days #20 tablet 08/25/23 HYDROcod/ACETAM 5/325 [[place] 5/325] 1 - 2 tab PO Q6H PRN #10 tablet 08/25/23 - Allergies Allergies/Adverse Reactions: Allergies Allergy/AdvReac Type Severity Reaction Status Date / Time bee sting Allergy Severe anaphalaxis Uncoded 11/20/22 09:41 - Social History Does the pt smoke?: No Smoking Status: Never smoker Does the pt drink ETOH?: Yes Does the pt have substance abuse?: No - Immunizations Immunizations are current?: Yes - POLST Patient has POLST: No PD ED PE NORMAL - Vitals Vital signs reviewed: Yes - General General: Alert and oriented X 3, No acute distress, Well developed/nourished - Derm Derm: Normal color, Warm and dry, No rash - Extremities Extremities: No deformity, No tenderness to palpate, Other (able to move base of thumb, however unable to flex thumb joint. Able to extend thumb. Cap refill intact, sensation intact) Results - Vitals Vitals: Vital Signs - 24 hr 08/25/23 10:56 Temperature 37 C Heart Rate 78 Respiratory 18 Rate Blood Pressure 126/75 O2 Saturation 100 Oxygen O2 Source Room air PD Medical Decision Making - ED course Complexity details: reviewed results, re-evaluated patient, considered differential, d/w patient, d/w aws consultant ED course: Patient with what appears to be right thumb flexor tendon injury. He has movement at the base of his thumb but is unable to flex his thumb joint. Otherwise neurovascularly intact with intact capillary refill and sensation. X- rays show no acute traumatic pathology. Based on patient's symptoms and suspected flexor tendon injury call placed to [facility] hand surgery. Spoke with Dr. Gilma Hunter of [facility] hand center, who stated that patient could be followed up with them in clinic to see if surgery is needed. The patient's cell phone number was given to the transfer center to arrange follow-up appointment. Hand surgeon recommended against any bracing, only recommendation was pain control and to continue to stretch and move the hand to preserve as much flexibility as possible. Patient informed of hand surgery recommendations. He will await the hand center call to arrange a follow-up appointment. Pain medication sent to pharmacy. Patient advised of hand surgeon recommendation to continue to move his hand is much as possible to preserve flexibility. Departure - Departure Disposition: 01 Home, Self Care Clinical Impression: Injury of flexor tendon of right hand Qualifiers: Encounter type: initial encounter Qualified Code(s): S66.801A - Unspecified injury of other specified muscles, fascia and tendons at wrist and hand level, right hand, initial encounter Condition: Stable Instructions: Laceration Flexor Tendon Tx Prescriptions: Cyclobenzaprine [Flexeril] 10 mg PO TID PRN 6 Days #20 tablet PRN Reason: Spasms HYDROcod/ACETAM 5/325 [[place] 5/325] 1 - 2 tab PO Q6H PRN #10 tablet PRN Reason: Pain Comments: It is extremely important that you follow-up with hand surgery. I have provided the hand clinic your number and please be ready to accept a phone call from an unknown number in the next 1-2 business days to schedule your appointment. Keep moving your fingers and wrist is much as possible to preserve movement and flexibility.. MEDICATIONS SENT TO [facility] [place] Forms: PCP List Discharge Date/Time: 08/25/23 15:04
--- NOTE | 2023-08-25 14:02 | XRAY Report ---
PROCEDURE: Finger(s) RT INDICATIONS: R THUMB INJURY TECHNIQUE: AP hand, 2 views of the first finger(s) acquired. COMPARISON: None. FINDINGS: Bones: No displaced fracture or dislocation. Chronic appearing bone fragment versus ossicle at the i nterphalangeal joint. Soft tissues: No suspicious calcifications. IMPRESSION: No acute osseous abnormality. If there is high concern for occult injury, consider repeat radiography or cross-sectional imaging. Reviewed by: Jerry Anderson MD on 08/25/2023 2:01 PM PST Approved by: Jerry Anderson MD on 08/25/2023 2:01 PM [facility] Station ID: [id number]
== END 2023-08-25 15:04 | disposition home or self-care (01) ==
LOC: ED 10:28
DX: S66.001A Unspecified injury of long flexor muscle, fascia and tendon of right thumb at wrist and hand level, initial encounter (principal); X50.1XXA Overexertion from prolonged static or awkward postures, initial encounter; Y93.B3 Activity, free weights
CPT/HCPCS: 99283

== ENCOUNTER 2023-09-20 12:26 | Outpatient (CLI) | payer OTHER ==
--- NOTE | 2023-09-20 14:59 | Ultrasound Report ---
PROCEDURE: Extremity Soft Tissue Limited INDICATIONS: HARD MOBILE RIGHT ANTERIOR LLE MASS TECHNIQUE: Real-time scanning was performed of the right overlying, with image documentation. COMPARISON: None. FINDINGS: A circumscribed lentiform hypoechoic subcutaneous lesion is seen corresponding to palpable abnormality in the right lower leg. No internal vascularity is seen. The lesion measures 1.7 x 1.8 x 0.6 cm. IMPRESSION: Nonspecific 1.8 cm subcutaneous hypoechoic lesion corresponding to palpable area of conc krzysztof. Differential considerations include a comminuted cystic lesion such as a hematoma versus solid m ass. Recommend correlation with clinical findings. Consider right tibia/fibula MRI with and without c ontrast for further evaluation if indicated clinically. Reviewed by: Benjamin Calzada MD on 09/20/2023 2:57 PM PST Approved by: Benjamin Calzada MD on 09/20/2023 2:57 PM PST Station ID: [id number]
== END 2023-09-20 12:27 | disposition home or self-care (01) ==
LOC: DI 12:26
PROVIDERS: ATTEND Nurse Practitioner Family
DX: R22.42 Localized swelling, mass and lump, left lower limb (principal)

== ENCOUNTER 2023-09-23 17:46 | Emergency (ER) | payer OTHER ==
[2023-09-23] MEDS ORDERED: DEXAMETHASONE 10 MG/ML VIAL IM STA (18:17)
[2023-09-23] MEDS ORDERED: KETOROLAC 60 MG/2 ML VIAL IM STA (18:17)
[2023-09-23] MEDS ORDERED: HYDROmorphone 1 MG/ML CARPUJECT IM STA (18:17)
--- NOTE | 2023-09-23 18:20 | ED Physician Documentation ---
PD HPI BACK PAIN - Stated complaint Stated Complaint: BACK PX - Chief complaint Chief Complaint: Back Pain - History obtained from History obtained from: Patient - Additional information Additional information: 47-year-old gentleman with recurrent back pain has had 3 days of severe left lower back pain radiating into the left thigh. Not associate with weakness, numbness, tingling, saddle anesthesia, or fevers. There was no injury. PD PAST MEDICAL HISTORY - Past Medical History Past Medical History: Yes Cardiovascular: None Respiratory: Sleep apnea Neuro: Head injury Endocrine/Autoimmune: None GI: GERD : None HEENT: None Psych: Anxiety, Post traumatic stress disorder Musculoskeletal: Chronic back pain Derm: None - Past Surgical History Past Surgical History: Yes Ortho: ACL reconstruction - Present Medications Home Medications: Ambulatory Orders Medication Instructions Recorded Confirmed buPROPion [Wellbutrin Xl] 150 mg PO DAILY 01/09/21 11/20/22 Meloxicam [Mobic] 7.5 mg PO BID PRN #20 tablet 11/20/22 Omeprazole Magnesium 20 mg PO BID 11/20/22 11/20/22 Oxycodone HCl/Acetaminophen 1 - 2 each PO Q6H PRN #14 tablet 11/20/22 [Percocet 5-325 mg Tablet] MDD 6 tabs Rosuvastatin Calcium [Crestor] 20 mg PO DAILY 11/20/22 11/20/22 Vilazodone HCl 20 mg PO DAILY 11/20/22 11/20/22 diazePAM [Valium] 5 - 10 mg PO TID PRN #15 tablet 11/20/22 methocarbamoL [Methocarbamol] 750 mg PO TID PRN 11/20/22 11/20/22 Cyclobenzaprine [Flexeril] 10 mg PO TID PRN 6 Days #20 tablet 08/25/23 HYDROcod/ACETAM 5/325 [[place] 5/325] 1 - 2 tab PO Q6H PRN #10 tablet 08/25/23 Cyclobenzaprine [Flexeril] 10 mg PO TID PRN #20 tablet 09/23/23 Oxycodone HCl/Acetaminophen 1 - 2 each PO Q6H PRN #14 tablet 09/23/23 [Percocet 5-325 mg Tablet] predniSONE [Deltasone] 20 mg PO [id number] #21 tab 09/23/23 - Allergies Allergies/Adverse Reactions: Allergies Allergy/AdvReac Type Severity Reaction Status Date / Time bee sting Allergy Severe anaphalaxis Uncoded 09/23/23 17:56 - Social History Does the pt smoke?: No Smoking Status: Never smoker Does the pt drink ETOH?: Yes Does the pt have substance abuse?: No - Immunizations Immunizations are current?: Yes - POLST Patient has POLST: No PD ED PE NORMAL - Vitals Vital signs reviewed: Yes - General General: Alert and oriented X 3, Other (Appears comfortable at rest but winces with any motion) - Back Back: No spinal TTP, Other (Left paralumbar spinal tenderness, no midline spinal tenderness) - Extremities Extremities: Other (The patient has equal and normal Achilles and patellar reflexes bilaterally. Normal sensation in all areas of the legs. Patient denies saddle anesthesia. Normal strength in flexion-extension at the ankles, knees, and flexion of the hips.) - Neuro Neuro: Alert and oriented X 3, Normal speech Results - Vitals Vitals: Vital Signs - 24 hr 09/23/23 17:53 Temperature 36.3 C L Heart Rate 93 Respiratory 16 Rate Blood Pressure 136/77 H O2 Saturation 97 Oxygen O2 Source Room air PD Medical Decision Making - ED course ED course: This patient has seemingly uncomplicated musculoskeletal back pain. The patient has no "red flags." Specifically denies IV drug use, fevers, incontinence, saddle anesthesia. Spinal epidural abscess was considered, given that the patient has no fever, is not diabetic, has no spinal tenderness, does not use IV drugs, and has no bilateral neurologic symptoms, the diagnosis of spinal epidural abscess is considered exceedingly unlikely. Treatment in the emergency department consisted of 2 mg of IM Dilaudid 60 mg IM Toradol 10 mg IM Dexamethasone Departure - Departure Disposition: 01 Home, Self Care Clinical Impression: Sciatica Qualifiers: Laterality: left Qualified Code(s): M54.32 - Sciatica, left side Condition: Good Record reviewed to determine appropriate education?: Yes Instructions: ED Sciatica Prescriptions: predniSONE [Deltasone] 20 mg PO [id number] #21 tab Cyclobenzaprine [Flexeril] 10 mg PO TID PRN #20 tablet PRN Reason: Spasms Oxycodone HCl/Acetaminophen [Percocet 5-325 mg Tablet] 1 - 2 each PO Q6H PRN #14 tablet PRN Reason: pain Comments: You were seen tonight for sciatica on the left side. I sent your prescriptions electronically to the [facility] in [place]. You received intramuscular pain medication, anti-inflammatories and steroids here. Call your doctor to arrange a follow-up appointment, make the next available appointment. In the interim, return anytime if worse or if new symptoms develop. I am prescribing a short course of narcotic pain medication for you. These are potentially dangerous and addictive medications that should be used carefully. These medications may constipate you. Take an dkvz-gmg-yefutmu stool softener (docusate) twice daily with plenty of water while taking these medications. If you go 24 hours without a bowel movement, take psjq-ivp-aokmsyq miralax, per package instructions. Do not drink or drive while taking these medications. If you received narcotic or sedating medications while in the emergency department, do not drive for 24 hours. Store this medication in a safe, secure place and out of reach of children. It is a violation of federal law to give or sell this medication to another person or to use in a manner other than prescribed. The ED will not refill narcotic prescriptions, including prescriptions lost or stolen. To dispose of unwanted medications: 1. [facility] provides a drop box for medication in pill form only (no liquids) 8:00 am to 4:30 p.m. Saturday-Saturday in the lobby of the [facility], [address] [place] [address]. Empty pills into ziplock bag before disposal. Call [phone] for information. 2.[employer] is a free service available to all [facility] residents. Go to [email or web address] Note that many narcotic pain relievers also contain Tylenol/acetaminophen. Please ensure that your total dose of acetaminophen from all sources does not exceed 3 g (3000 mg) per day.
[2023-09-23 19:02] VITALS: BP 130/72; O2SAT 98
== END 2023-09-23 18:59 | disposition home or self-care (01) ==
LOC: ED 17:46
DX: M54.32 Sciatica, left side (principal)
CPT/HCPCS: 96372; 99283; J1170

== ENCOUNTER 2024-01-31 04:42 | Emergency (ER) | payer OTHER ==
[2024-01-31 05:20] LABS: RAPID STREP SCREEN Negative (Negative)
--- NOTE | 2024-01-31 05:44 | ED Physician Documentation ---
PD CHELSEY HEENT - Stated complaint Stated Complaint: SORE THROAT - Chief complaint Chief Complaint: Heent - History obtained from History obtained from: Patient - Additional information Additional information: Patient is a 48-year-old male presenting for evaluation of sore throat for the past several days That seemed worse this morning. No reported fevers. No significant cough. Does report having some congestion. Recently has had issues with allergies but these other symptoms have started over the past several days. Patient has had sick contacts at home with daughter and a child with cold-like symptoms. Has been taking Mucinex. Drinking plenty of water and no difficulty with swallowing. Has had a history of repeated strep infections in the past. Review of Systems Constitutional: denies: Fever Nose: reports: Congestion Throat: reports: Sore throat Cardiac: denies: Chest pain / pressure Respiratory: denies: Dyspnea GI: denies: Abdominal Pain PD PAST MEDICAL HISTORY - Past Medical History Past Medical History: Yes Cardiovascular: None Respiratory: Sleep apnea Neuro: Head injury Endocrine/Autoimmune: None GI: GERD : None HEENT: None Psych: Anxiety, Post traumatic stress disorder Musculoskeletal: Chronic back pain Derm: None Other Past Medical History: strep throat - Past Surgical History Past Surgical History: Yes Ortho: ACL reconstruction - Present Medications Home Medications: Ambulatory Orders Medication Instructions Recorded Confirmed buPROPion [Wellbutrin Xl] 150 mg PO DAILY 01/09/21 11/20/22 Meloxicam [Mobic] 7.5 mg PO BID PRN #20 tablet 11/20/22 Omeprazole Magnesium 20 mg PO BID 11/20/22 11/20/22 Oxycodone HCl/Acetaminophen 1 - 2 each PO Q6H PRN #14 tablet 11/20/22 [Percocet 5-325 mg Tablet] MDD 6 tabs Rosuvastatin Calcium [Crestor] 20 mg PO DAILY 11/20/22 11/20/22 Vilazodone HCl 20 mg PO DAILY 11/20/22 11/20/22 diazePAM [Valium] 5 - 10 mg PO TID PRN #15 tablet 11/20/22 methocarbamoL [Methocarbamol] 750 mg PO TID PRN 11/20/22 11/20/22 Cyclobenzaprine [Flexeril] 10 mg PO TID PRN 6 Days #20 tablet 08/25/23 HYDROcod/ACETAM 5/325 [[place] 5/325] 1 - 2 tab PO Q6H PRN #10 tablet 08/25/23 Cyclobenzaprine [Flexeril] 10 mg PO TID PRN #20 tablet 09/23/23 Oxycodone HCl/Acetaminophen 1 - 2 each PO Q6H PRN #14 tablet 09/23/23 [Percocet 5-325 mg Tablet] predniSONE [Deltasone] 20 mg PO [id number] #21 tab 09/23/23 - Allergies Allergies/Adverse Reactions: Allergies Allergy/AdvReac Type Severity Reaction Status Date / Time bee sting Allergy Severe anaphalaxis Uncoded 01/31/24 05:03 - Social History Does the pt smoke?: No Smoking Status: Never smoker Does the pt drink ETOH?: Yes Does the pt have substance abuse?: No - Immunizations Immunizations are current?: Yes - POLST Patient has POLST: No PD ED PE NORMAL - General General: Alert and oriented X 3, No acute distress, Well developed/nourished - HEENT HEENT: Atraumatic, Moist mucous membranes, Pharynx benign (No oral swelling, exudate.) - Neck Neck: Supple, no meningeal sign - Cardiac Cardiac: RRR - Respiratory Respiratory: No respiratory distress, Clear bilaterally - Derm Derm: Warm and dry - Neuro Neuro: Normal speech Results - Vitals Vitals: Vital Signs - 24 hr 01/31/24 01/31/24 04:59 06:09 Temperature 36.7 C Heart Rate 85 80 Respiratory 19 16 Rate Blood Pressure 111/70 137/82 H O2 Saturation 98 97 Oxygen O2 Source Room air - Labs Labs: Laboratory Tests 01/31/24 01/31/24 05:05 05:05 Nasal Adenovirus (PCR) NOT DETECTED Nasal B. parapertussis DNA (PCR) NOT DETECTED Nasal Coronavir 229E PCR NOT DETECTED Nasal Coronavir HKU1 PCR NOT DETECTED Nasal Coronavir NL63 PCR NOT DETECTED Nasal Coronavir OC43 PCR NOT DETECTED Nasal Enterovir/Rhinovir PCR NOT DETECTED Nasal Influenza B PCR NOT DETECTED Nasal Influenza A PCR NOT DETECTED Nasal Parainfluen 1 PCR NOT DETECTED Nasal Parainfluen 2 PCR NOT DETECTED Nasal Parainfluen 3 PCR NOT DETECTED Nasal Parainfluen 4 PCR NOT DETECTED Nasal RSV (PCR) NOT DETECTED Nasal B.pertussis DNA PCR NOT DETECTED Nasal C.pneumoniae (PCR) NOT DETECTED Gerald Human Metapneumo PCR NOT DETECTED Nasal M.pneumoniae (PCR) NOT DETECTED Nasal SARS-CoV-2 (PCR) NOT DETECTED Group A Strep Rapid Negative PD Medical Decision Making - ED course Complexity details: reviewed results, d/w patient ED course: Patient presenting for evaluation of URI symptoms. Primary concern is of sore throat. Vital signs are stable. No signs of deep space infection on exam. T olerating secretions. No signs of swelling. Rapid strep is negative and culture is pending. Respiratory swab is obtained and also pending. Patient offered a dose of Decadron for discomfort which he is agreeable to. He is tolerating p.o. intake quite well. He understands importance of continued supportive care as well as concerning symptoms to return for. Departure - Departure Disposition: 01 Home, Self Care Clinical Impression: Pharyngitis Condition: Stable Instructions: ED Pharyngitis Viral Comments: Your rapid strep test is negative and a culture is pending. I have given you a dose of long-acting steroid called Decadron to help with the inflammation and discomfort you are feeling in your throat. Continue with anti-inflammatories as well as hydration. Return if you develop any worsening symptoms such as trouble swallowing, difficulty breathing or any other concerns. Your respiratory panel is pending. This will check for COVID, influenza, RSV and a number of other common cold viruses. We will notify you if it is positive for COVID. Otherwise you can check the patient portal for your results. You should quarantine from others until you know your COVID result. Please continue with acetaminophen or ibuprofen as needed for fevers and body aches, plenty of fluids/hydration and rest. Return to the ER with any worsening symptoms such as difficulty breathing or vomiting. Forms: PCP List
[2024-01-31] MEDS: DEXAMETHASONE 10 MG/ML VIAL PO STA (05:54)
[2024-01-31] MEDS: CHERRY SYRUP 10 ML UDC PO ONE (05:54)
[2024-01-31 06:05] LABS: B. PARAPERTUSSIS- RESP PCR PAN NOT DETECTED; B. PERTUSSIS- RESP PCR PANEL NOT DETECTED; C. PNEUMONIAE- RESP PCR PANEL NOT DETECTED; CORONAVIRUS 229E-RESP PCR NOT DETECTED; CORONAVIRUS HKU1-RESP PCR NOT DETECTED; CORONAVIRUS NL63-RESP PCR NOT DETECTED; CORONAVIRUS OC43-RESP PCR NOT DETECTED; HUMAN METAPNEUMOVIRUS NOT DETECTED; INFLUENZA A- RESP PCR PANEL NOT DETECTED; INFLUENZA B - RESP PCR PANEL NOT DETECTED; M. PNEUMONIAE- RESP PCR PANEL NOT DETECTED; PARAINFLUENZA VIRUS 1 NOT DETECTED; PARAINFLUENZA VIRUS 2 NOT DETECTED; PARAINFLUENZA VIRUS 3 NOT DETECTED; PARAINFLUENZA VIRUS 4 NOT DETECTED; RHINOVIRUS/ENTEROVIRUS NOT DETECTED; RSV- RESP PCR PANEL NOT DETECTED; SARS-CoV-2 -RESP PCR PANEL NOT DETECTED
[2024-01-31 06:11] VITALS: BP 137/82; O2SAT 97
--- NOTE | 2024-02-02 17:57 | ED Physician Documentation ---
ED Addendum - Addendum Addendum: 02/02/24 17:57 Throat culture reviewed. GAS positive. Left voicemail for patient to call back 02/02/24 19:04 He called back and I spoke with patient and discussed throat culture positive. He plans to return for medications as the pharmacies are closed.
== END 2024-01-31 06:09 | disposition home or self-care (01) ==
LOC: ED 04:42
DX: J02.0 Streptococcal pharyngitis (principal); B95.0 Streptococcus, group A, as the cause of diseases classified elsewhere; Z79.899 Other long term (current) drug therapy
CPT/HCPCS: 87070; 87077; 87430; 87633; 99283; A9270

== ENCOUNTER 2024-02-02 19:24 | Emergency (ER) | payer OTHER ==
[2024-02-02 19:45] VITALS: BP 132/70; O2SAT 100
--- NOTE | 2024-02-02 19:46 | ED Physician Documentation ---
PD HPI HEENT - Stated complaint Stated Complaint: SORE THROAT - Chief complaint Chief Complaint: Heent - History obtained from History obtained from: Patient - Additional information Additional information: His throat culture was positive, I called him and it was too late for him to go to the pharmacy and he really wants to start treatment tonight and is having a lot of pain. PD PAST MEDICAL HISTORY - Past Medical History Past Medical History: Yes Cardiovascular: None Respiratory: Sleep apnea Neuro: Head injury Endocrine/Autoimmune: None GI: GERD : None HEENT: Other Psych: Anxiety, Post traumatic stress disorder Musculoskeletal: Chronic back pain Derm: None Other Past Medical History: strep throat - Past Surgical History Past Surgical History: Yes Ortho: ACL reconstruction - Present Medications Home Medications: Ambulatory Orders Medication Instructions Recorded Confirmed buPROPion [Wellbutrin Xl] 150 mg PO DAILY 01/09/21 11/20/22 Meloxicam [Mobic] 7.5 mg PO BID PRN #20 tablet 11/20/22 Omeprazole Magnesium 20 mg PO BID 11/20/22 11/20/22 Oxycodone HCl/Acetaminophen 1 - 2 each PO Q6H PRN #14 tablet 11/20/22 [Percocet 5-325 mg Tablet] MDD 6 tabs Rosuvastatin Calcium [Crestor] 20 mg PO DAILY 11/20/22 11/20/22 Vilazodone HCl 20 mg PO DAILY 11/20/22 11/20/22 diazePAM [Valium] 5 - 10 mg PO TID PRN #15 tablet 11/20/22 methocarbamoL [Methocarbamol] 750 mg PO TID PRN 11/20/22 11/20/22 Cyclobenzaprine [Flexeril] 10 mg PO TID PRN 6 Days #20 tablet 08/25/23 HYDROcod/ACETAM 5/325 [[place] 5/325] 1 - 2 tab PO Q6H PRN #10 tablet 08/25/23 Cyclobenzaprine [Flexeril] 10 mg PO TID PRN #20 tablet 09/23/23 Oxycodone HCl/Acetaminophen 1 - 2 each PO Q6H PRN #14 tablet 09/23/23 [Percocet 5-325 mg Tablet] predniSONE [Deltasone] 20 mg PO [id number] #21 tab 09/23/23 HYDROcod/ACETAM 5/325 [[place] 5/325] 1 - 2 tab PO Q6H PRN #10 tablet 02/02/24 Penicillin V Potassium 500 mg PO Q6HR #40 tablet 02/02/24 - Allergies Allergies/Adverse Reactions: Allergies Allergy/AdvReac Type Severity Reaction Status Date / Time bee sting Allergy Severe anaphalaxis Uncoded 02/02/24 19:37 - Social History Does the pt smoke?: No Smoking Status: Never smoker Does the pt drink ETOH?: Yes Does the pt have substance abuse?: No - Immunizations Immunizations are current?: Yes - POLST Patient has POLST: No PD ED PE NORMAL - Vitals Vital signs reviewed: Yes - General General: Alert and oriented X 3, No acute distress - HEENT HEENT: Other (Mildly red tonsillar pillars with no cervical adenopathy. Supple neck.) - Neuro Neuro: Alert and oriented X 3 Results - Vitals Vitals: Vital Signs - 24 hr 02/02/24 19:34 Temperature 37 C Heart Rate 75 Respiratory 15 Rate Blood Pressure 132/70 H O2 Saturation 100 Oxygen O2 Source Room air PD Medical Decision Making - ED course ED course: He wanted to do IM penicillin and he was given for hydrocodone for tonight. Subsequently notified by the nurse that we do not have injectable penicillin and updated the patient that we will be doing the oral option instead. Departure - Departure Disposition: 01 Home, Self Care Clinical Impression: Strep throat Condition: Good Record reviewed to determine appropriate education?: Yes Instructions: ED Strep Pharyngitis Conf Prescriptions: Penicillin V Potassium 500 mg PO Q6HR #40 tablet HYDROcod/ACETAM 5/325 [[place] 5/325] 1 - 2 tab PO Q6H PRN #10 tablet PRN Reason: Pain Comments: You were seen tonight for strep throat, the initial test was negative but the culture was positive. You received a dose of intramuscular penicillin which is the entire course. I sent a prescription for some pain medication to [facility]. Return if worse. I am prescribing a short course of narcotic pain medication for you. These are potentially dangerous and addictive medications that should be used carefully. These medications may constipate you. Take an ecjo-uha-lkgcavs stool softener (docusate) twice daily with plenty of water while taking these medications. If you go 24 hours without a bowel movement, take yctx-cfh-[id number] miralax, per package instructions. Do not drink or drive while taking these medications. If you received narcotic or sedating medications while in the emergency department, do not drive for 24 hours. Store this medication in a safe, secure place and out of reach of children. It is a violation of federal law to give or sell this medication to another person or to use in a manner other than prescribed. The ED will not refill narcotic prescriptions, including prescriptions lost or stolen. To dispose of unwanted medications: 1. [facility] provides a drop box for medication in pill form only (no liquids) 8:00 am to 4:30 p.m. Saturday-Saturday in the lobby of the [facility], [address] [place] [address]. Empty pills into ziplock bag before disposal. Call [phone] for information. 2.[employer] is a free service available to all [facility] residents. Go to [email or web address] Note that many narcotic pain relievers also contain Tylenol/acetaminophen. Please ensure that your total dose of acetaminophen from all sources does not exceed 3 g (3000 mg) per day. Forms: PCP List
[2024-02-02] MEDS: HYDROcod/ACET 5/325 Prepack 4 PO STA (19:50)
[2024-02-02] MEDS: PENICILLIN G BENZATHINE 1,200,000 UNIT/2 ML SYRINGE IM STA (19:59)
[2024-02-02] MEDS: PENICILLIN VK 250 MG TABLET PO STA (20:01)
== END 2024-02-02 20:03 | disposition home or self-care (01) ==
LOC: ED 19:24
DX: J02.0 Streptococcal pharyngitis (principal); G47.30 Sleep apnea, unspecified; Z79.899 Other long term (current) drug therapy
CPT/HCPCS: 99283; A9270

== ENCOUNTER 2024-04-06 17:31 | Emergency (ER) | payer OTHER ==
[2024-04-06 17:48] VITALS: BP 140/90; O2SAT 97
--- NOTE | 2024-04-06 18:14 | ED Physician Documentation ---
PD HPI BACK PAIN - Stated complaint Stated Complaint: BACK PX - Chief complaint Chief Complaint: Back Pain - Additional information Additional information: 48-year-old male with known history of back spasms and back injuries he is being followed with a spinal specialist at [facility] and last had a steroid injection about 9 months ago. Patient states that he was riding bike, and started to feel a twinge of pain in his lower back And it eventually moved into full back spasms flare. He states that he is unable to sit down. He attempted to go to the chiropractor where he did have some adjustments but reports that he still having some deep musculoskeletal pain. No recent falls trauma or injury. He denies any urinary or stool incontinence no recent fevers chills no history of IV drug use or abuse. PD PAST MEDICAL HISTORY - Past Medical History Past Medical History: Yes Cardiovascular: None Respiratory: Sleep apnea Neuro: Head injury Endocrine/Autoimmune: None GI: GERD : None HEENT: Other Psych: Anxiety, Post traumatic stress disorder Musculoskeletal: Chronic back pain Derm: None - Past Surgical History Past Surgical History: Yes Ortho: ACL reconstruction - Present Medications Home Medications: Ambulatory Orders Medication Instructions Recorded Confirmed HYDROcod/ACETAM 5/325 [[place] 5/325] 1 - 2 tab PO Q6H PRN #10 tablet 02/02/24 Penicillin V Potassium 500 mg PO Q6HR #40 tablet 02/02/24 tiZANidine [Zanaflex] 4 mg PO Q8H 10 Days #30 tablet 04/06/24 - Allergies Allergies/Adverse Reactions: Allergies Allergy/AdvReac Type Severity Reaction Status Date / Time bee sting Allergy Severe anaphalaxis Uncoded 04/06/24 18:12 - Social History Does the pt smoke?: No Smoking Status: Never smoker Does the pt drink ETOH?: Yes Does the pt have substance abuse?: No - Immunizations Immunizations are current?: Yes - POLST Patient has POLST: No PD ED PE NORMAL - Vitals Vital signs reviewed: Yes - General General: Alert and oriented X 3, Well developed/nourished, Other (In acute pain) - HEENT HEENT: Atraumatic, PERRL, EOMI - Neck Neck: Supple, no meningeal sign, No bony TTP - Cardiac Cardiac: RRR - Respiratory Respiratory: No respiratory distress, Clear bilaterally - Extremities Extremities: No deformity, No edema, No calf tenderness / cord - Neuro Neuro: Alert and oriented X 3, 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 Curvature of the cervical, thoracic, and lumbar spine are within normal limits. Bony features of the shoulders and hips are of equal height bilaterally. Posture is upright, gait is smooth, steady, and within normal limits. No tenderness noted on palpation of the spinous processes. Spinous processes are midline. Cervical, thoracic, and lumbar paraspinal muscles are not tender and are without spasm. No discomfort is noted with flexion, extension, and [id number] rotation of the cervical spine, full range of motion is noted. Full range of motion including flexion, extension, and [id number] rotation of the thoracic and lumbar spine are noted and without discomfort. Straight leg raise test is negative bilaterally. Sensation to the upper and lower extremities is normal bilaterally. No clonus is noted. Rib Trim Separator strength is normal bilaterally. Dorsi/plantar flexion is normal bilaterally. Results - Vitals Vitals: Oxygen O2 Source Room air PD Medical Decision Making - ED course ED course: This patient presents with back pain most consistent with muscle spasms. Differential diagnoses includes lumbago versus musculoskeletal spasm / strain versus sciatica. Less likely sciatica as straight leg raise test was negative. No back pain red flags on history or physical. Presentation not consistent with malignancy (lack of history of malignancy, lack of B symptoms), fracture (no trauma, no bony tenderness to palpation), cauda equina (no bowel or urinary incontinence/retention, no saddle anesthesia, no distal weakness), AAA, viscus perforation, osteomyelitis or epidural abscess (no IVDU, vertebral tenderness), renal colic, pyelonephritis (afebrile, no CVAT, no urinary symptoms). Given the clinical picture, no indication for imaging at this time. Patient reports significant improvement of pain after IM Dilaudid and IM Toradol. Patient s tates this is normally what works best for him. A prescription of tizanidine was sent to his preferred pharmacy patient told to follow-up with a spinal surgeon and see if he may need another local injection of steroids. Return precautions given all questions answered patient safe for discharge at this time. Departure - Departure Disposition: 01 Home, Self Care Clinical Impression: Back spasm Instructions: ED Back Care Tips Prescriptions: tiZANidine [Zanaflex] 4 mg PO Q8H 10 Days #30 tablet Comments: Thank you for trusting us with your care. We have given you Dilaudid and Toradol shot here in the emergency department. I would strongly encourage you to get some Voltaren cream for your lower back to see if this helps with the acute back spasms that you are experiencing as well as start a new medication called tizanidine you can take 4 mg up to 3 times a day but if I were you I would start with the 2 mg 3 times a day if you are able to split the pill in half. I would suggest doing 500 mg of Aleve every 12 hours and 1000 mg of Tylenol every 8 hours for back pain do not apply heat as this will make it worse in the acute phase only apply ice 20 minutes on 1 hour off and do it you can to stay moving do not do any excessive heavy workouts. Please follow-up with your spinal surgeon to see if they need to redo your steroid shot. Please come back to the if you are having any incontinence of bowel or bladder or any other concerning emergent symptoms. Wishing a speedy recovery. Discharge Date/Time: 04/06/24 19:34
[2024-04-06] MEDS: KETOROLAC 30 MG/ML VIAL IM STA (18:26)
[2024-04-06] MEDS: HYDROmorphone 0.5 MG/0.5 ML SYRINGE IM STA (18:43)
[2024-04-06] MEDS: tiZANidine 4 MG TABLET PO PRN (19:34)
== END 2024-04-06 19:34 | disposition home or self-care (01) ==
LOC: ED 17:31
DX: M62.830 Muscle spasm of back (principal); G47.30 Sleep apnea, unspecified
CPT/HCPCS: 96372; 99283; A9270; J1170